=== PATIENT | female | born 1980 | race Caucasian/White ===

== ENCOUNTER 2016-10-29 14:58 | Emergency (ER) | payer OTHER ==
[~2016-10-29] VITALS: Ht 162.6 cm; Wt 72.6 kg
--- NOTE | ~2016-10-29 | CT2 ---
[facility] A Service of [facility] & [facility] RADIOLOGY TEXT RESULTS PATIENT: ZORAIDA BATISTA LOCATION: [facility] : 80 UNIT #: [id number] AGE: [address]: Frances Levin APRN SEX: F ORDER DR: [id number] [facility] [address] [place], [place] [address] [id number] E MR#: [id number] Acc #: [id number] NAME: ZORAIDA BATISTA : 1980 SEX: F STUDY DATE/TIME: 10/29/2016 18:52 UNIT: [facility] ROOM: STUDY DESCRIPTION: CT Abd and Pelv W Cont Attending Physician: Frances Levin A.P.R.N. Ordering Physician: Ed Doc Roni Larson Primary Care Physician: No Primary Care Physician MEDICAL IMAGING REPORT This report is preliminary unless electronic signature is present EXAM CT scan of the abdomen and pelvis with contrast 10/29/2016. HISTORY Abdominal pain off and on since 10/28/2016. Pain primarily in the mid abdomen extending to the left side. No known injury. TECHNIQUE Spiral CT was performed through the abdomen and pelvis following intravenous contrast administration only as per clinician request. This CT exam was performed with one or more of the following radiation dose reduction techniques: Automatic exposure control, adjustment of mA and/or kV according to patient size, and iterative reconstruction. FINDINGS Abdomen: The exam is limited by the lack of oral contrast. The liver, spleen, pancreas, gallbladder and biliary tree, adrenal glands and kidneys are normal. Pelvis findings: There is a 1.5 cm periumbilical hernia containing only fat. The gut, mesenteric and dolores structures are normal. There is minimal free fluid in the pelvis. The lung bases are normal. IMPRESSION 1. Exam is limited by the lack of oral contrast. 2. Small periumbilical hernia containing only fat. Dictated by... Tariq Pereyra M.D. THIS IS AN ELECTRONICALLY VERIFIED REPORT Tariq Pereyra M.D. at 10/30/2016 10:38 AM KRT/bd STS. [facility] A Service of [facility] & [facility] RADIOLOGY TEXT RESULTS PATIENT: ZORAIDA BATISTA LOCATION: [facility] : [birth year] UNIT #: [id number] AGE: [address]: Frances Levin APRN SEX: F ORDER DR: TD: 10/30/2016 06:38 JOB #: [id number] MEDICAL IMAGING REPORT Page 1 of 1 COPY
[2016-10-29 15:22] LABS: BASOPHIL# 0.1 X10e3 (0-0.3); BASOPHIL% 1.1 % (0-2.5); EOSINOPHIL% 0.7 % (0.0-7.0); HEMATOCRIT 45.6 % (35.0-45.0); HEMOGLOBIN 15.2 gm/dL (12.0-16.0); LYMPHOCYTE# 1.8 X10e3 (1.0-3.5); LYMPHOCYTE% 34.6 % (17.0-45.0); MEAN CELL VOLUME 86.6 FL (83-96); MEAN CORPUSCULAR HGB CONC 33.4 g/dL (30-36); MEAN PLATELET VOLUME 8.3 FL (6.5-11.5); MONOCYTE# 0.3 X10e3 (0-1.0); MONOCYTE% 6.5 % (3.0-12.0); NEUTROPHIL# 2.9 X10e3 (1.5-7.1); NEUTROPHIL% 57.1 % (40-75); PLATELET COUNT 237 X10e3 (140-420); RED BLOOD COUNT 5.26 X10e (3.90-5.30); RED CELL DISTRIBUTION WIDTH 13.1 % (11.0-15.5); WHITE BLOOD COUNT 5.1 X10e3 (4.0-10.5)
[2016-10-29 15:25] LABS: DIFF IND NO
[2016-10-29 15:51] LABS: ALBUMIN SERUM 4.7 g/dL (3.5-5.0); BILIRUBIN, DIRECT 0.1 mg/dL (0.0-0.2); BILIRUBIN,INDIRECT 0.3 mg/dL (0.0-0.9); BILIRUBIN,TOTAL 0.4 mg/dL (0.2-2.0); BUN/CREATININE RATIO 16.66; CALCIUM SERUM 9.5 mg/dL (8.4-10.2); CREATININE SERUM 0.9 mg/dL (0.6-1.4); GLOM FILT RATE Estimated 82.3 mL/min (>60); POTASSIUM 3.8 mmol/L (3.5-5.1); PROTEIN TOTAL SERUM 7.7 g/dL (6.0-8.3)
[2016-10-29 15:52] LABS: URINE SOURCE CLEAN CATCH
[2016-10-29 15:56] LABS: URINE APPEARANCE CLEAR; URINE BILIRUBIN NEG (NEG); URINE BLOOD NEG (NEG); URINE COLOR YELLOW; URINE GLUCOSE NEG (NEG); URINE KETONE NEG (NEG); URINE LEUKOCYTE ESTERASE NEG (NEG); URINE NITRATE NEG (NEG); URINE PH 6.5 (5-8); URINE PROTEIN NEG (NEG); URINE SPECIFIC GRAVITY 1.007 (1.003-1.035); URINE UROBILINOGEN 0.2 MG/DL (NEG)
[2016-10-29 16:01] LABS: CULTURE INDICATED? NO
== END 2016-10-29 19:25 | disposition home or self-care (01) ==
LOC: CED 14:58 → CFTX 14:58
DX: R10.13 Epigastric pain (principal); F41.9 Anxiety disorder, unspecified
CPT/HCPCS: 36415; 74177; 80048; 80076; 81003; 83690; 84703; 85025; 96372; 99284; J0500; Q9967